=== PATIENT | male | born 1980 | race Two or more races ===

== ENCOUNTER 2016-11-25 14:43 | Emergency (ER) | payer MEDICAID ==
[2016-11-25] MEDS ORDERED: DIPHTH,PERTUSS(ACELL),TET VAC 0.5 ML VIAL IM V ONE (16:36)
== END 2016-11-25 17:27 | disposition home or self-care (01) ==
LOC: ED 14:43
DX: S61.313A Laceration without foreign body of left middle finger with damage to nail, initial encounter (principal); W29.8XXA Contact with other powered hand tools and household machinery, initial encounter; Z23 Encounter for immunization